=== PATIENT | male | born 1980 | race Caucasian/White ===

== ENCOUNTER 2019-05-21 07:17 | Emergency (ER) | payer BC ==
[~2019-05-21] VITALS: Ht 172.7 cm; Wt 99.8 kg
[~2019-05-21 07:17] MED LIST: ASPI81EC PO; BETA BLOCKER; CEPH500 PO; HTN MED; HYDACE5 PO; LISI20 PO; METO50ER PO; NEBI5 PO
[2019-05-21] MEDS ORDERED: TRAZ100 (07:37)
[2019-05-21] MEDS ORDERED: METOPROLOL SUCC25 MG PO (07:51)
[2019-05-21] MEDS ORDERED: PRINIVIL10 MG PO (07:52)
[2019-05-21 08:50] LABS: Calcium, Ionized (POC) 1.24 mmol/L (1.10-1.46); Chloride (POC) 106 mmol/L (98-108); Creatinine (POC) 1.1 mg/dL (0.8-1.3); Glucose (ISTAT POC) 102 mg/dL (70-99); Hemoglobin (POC) 15.6 g/dL (13.5-17.5); Potassium (POC) 4.2 mmol/L (3.5-5.5); Sodium (POC) 139 mmol/L (135-148); Total CO2 (POC) 24 mmol/L (21-32)
== END 2019-05-21 09:07 | disposition home or self-care (01) ==
LOC: ER 07:17
PROVIDERS: Emergency Medicine
DX: R55 Syncope and collapse (principal); S01.552A Open bite of oral cavity, initial encounter; S00.81XA Abrasion of other part of head, initial encounter; W18.30XA Fall on same level, unspecified, initial encounter; Z79.899 Other long term (current) drug therapy; Z79.82 Long term (current) use of aspirin; Z79.891 Long term (current) use of opiate analgesic; F41.9 Anxiety disorder, unspecified; I10 Essential (primary) hypertension
CPT/HCPCS: 36415; 80047; 85014; 93005; 93010; 99284-25